=== PATIENT | male | born 1965 | race Caucasian/White ===

== ENCOUNTER 2016-03-30 16:53 | Emergency (ER) | payer SELFPAY ==
[~2016-03-30] VITALS: Ht 177.8 cm; Wt 103.0 kg
[2016-03-30 16:55] VITALS: BP 149/95; PULSE 80; RESP 16; TEMP 98.2; O2SAT 96
[2016-03-30] MEDS ORDERED: SODIUM CHLORIDE 0.9% FLUSH 5 ML FLUSH IVF PRN (17:00)
[2016-03-30 17:04] VITALS: RESP 16; O2SAT 98
[2016-03-30] MEDS ORDERED: CIPR-9 PO (17:09)
--- NOTE | 2016-03-30 17:13 | PD ---
HPI Chief Complaint: Chest Pain Time Seen by Provider: 16:58 Travel History International Travel<30 days: No Contact w/Intl Traveler<30days: No Traveled to known affect area: No History of Present Illness HPI Is a 51-year-old male presents emergency department for chief complaint of anxiety attack. Patient was just arrested for failure to comply with a law officer. Patient states he was placed in the back of a patrol car and there was no air conditioning and he has a problem with enclosed space. Patient states that police clerk was not listening to him when he began having anxiety as well as chest pain. Patient is nonsmoker no high blood pressure and no high Cholesterol and no diabetes. Patient does follow with a application specialist and apparently is going to be scheduled to have a catheterization performed. Patient states the symptoms approximately 30 minutes in duration prior to arrival to the emergency department. My initial examination patient appears quite comfortable. He complains of a minimal sharp pain in the left side of his chest without radiation or nausea no vomiting. He states it is gradually starting to resolve. PFSH Past Medical History Hx Anticoagulant Therapy: No Cardiovascular Problems: No Chemotherapy: No Cerebrovascular Accident: No Diabetes: No Gastrointestinal Disorders: Yes (hemorrhoids ) Genitourinary: Yes (pyelonephritis) Respiratory: No Past Surgical History Other Surgery: Yes (TURP, RESECTION OF BLADDER NECK) Social History Alcohol Use: No Tobacco Use: No Substance Use: No Allergies-Medications (Allergen,Severity, Reaction): Coded Allergies: Dilaudid (Verified Adverse Reaction, Severe, "out of body experience" doesn't want to be given this, 03/30/16) Reported Meds & Prescriptions Reported Meds & Active Scripts Active Reported Cipro (Ciprofloxacin HCl) 500 Mg Tab 500 Mg PO BID Review of Systems Except as stated in HPI: all other systems reviewed are Neg Physical Exam Narrative GENERAL: Well-developed well-nourished in no apparent distress SKIN: Warm and dry. HEAD: Atraumatic. Normocephalic. EYES: Pupils equal and round. No scleral icterus. No injection or drainage. ENT: No nasal bleeding or discharge. Mucous membranes pink and moist. NECK: Trachea midline. No JVD. CARDIOVASCULAR: Regular rate and rhythm. No murmur appreciated. RESPIRATORY: No accessory muscle use. Clear to auscultation. Breath sounds equal bilaterally. GASTROINTESTINAL: Abdomen soft, non-tender, nondistended. Hepatic and splenic margins not palpable. MUSCULOSKELETAL: No obvious deformities. No clubbing. No cyanosis. No edema. NEUROLOGICAL: Awake and alert. No obvious cranial nerve deficits. Motor grossly within normal limits. Normal speech. PSYCHIATRIC: Appropriate mood and affect; insight and judgment normal. Data Data Last Documented VS Vital Signs Date Time Temp Pulse Resp B/P Pulse Ox O2 Delivery O2 Flow Rate FiO2 03/30/16 17:09 95 Nasal Cannula 2 03/30/16 17:04 16 03/30/16 16:55 98.2 80 149/95 Orders Electrocardiogram (03/30/16 16:59) Ckmb (Isoenzyme) Profile (03/30/16 16:59) Complete Blood Count With Diff (03/30/16 16:59) Comprehensive Metabolic Panel (03/30/16 16:59) Magnesium (Mg) (03/30/16 16:59) Prothrombin Time / Inr (Pt) (03/30/16 16:59) Act Partial Throm Time (Ptt) (03/30/16 16:59) Troponin I (03/30/16 16:59) Lipase (03/30/16 16:59) Chest, Single Ap (03/30/16 16:59) Ecg Monitoring (03/30/16 16:59) Bilateral Bp Monitoring (03/30/16 16:59) Iv Access Insert/Monitor (03/30/16 16:59) Oximetry (03/30/16 16:59) Oxygen Administration (03/30/16 16:59) Sodium Chloride 0.9% Flush (Ns Flush) (03/30/16 17:00) Alcohol (Ethanol) (03/30/16 16:59) Drug Screen, Random Urine (03/30/16 16:59) Ondansetron Inj (Zofran Inj) (03/30/16 17:45) CKMB (03/30/16 17:00) CKMB% (03/30/16 17:00) Troponin I (03/30/16 18:55) Labs Laboratory Tests Test 03/30/16 03/30/16 03/30/16 17:00 18:10 19:15 White Blood Count 8.1 TH/MM3 Red Blood Count 4.95 MIL/MM3 Hemoglobin 15.2 GM/DL Hematocrit 44.2 % Mean Corpuscular Volume 89.3 FL Mean Corpuscular Hemoglobin 30.8 PG Mean Corpuscular Hemoglobin 34.5 % Concent Red Cell Distribution Width 14.2 % Platelet Count 203 TH/MM3 Mean Platelet Volume 7.7 FL Neutrophils (%) (Auto) 78.2 % Lymphocytes (%) (Auto) 13.7 % Monocytes (%) (Auto) 6.3 % Eosinophils (%) (Auto) 1.4 % Basophils (%) (Auto) 0.4 % Neutrophils # (Auto) 6.3 TH/MM3 Lymphocytes # (Auto) 1.1 TH/MM3 Monocytes # (Auto) 0.5 TH/MM3 Eosinophils # (Auto) 0.1 TH/MM3 Basophils # (Auto) 0.0 TH/MM3 CBC Comment DIFF FINAL Differential Comment Prothrombin Time 10.6 SEC Prothromb Time International 1.0 RATIO Ratio Activated Partial 26.5 SEC Thromboplast Time Sodium Level 143 MEQ/L Potassium Level 3.7 MEQ/L Chloride Level 109 MEQ/L Carbon Dioxide Level 28.5 MEQ/L Anion Gap 6 MEQ/L Blood Urea Nitrogen 16 MG/DL Creatinine 1.23 MG/DL Estimat Glomerular Filtration 62 ML/MIN Rate Random Glucose 100 MG/DL Calcium Level 8.9 MG/DL Magnesium Level 2.2 MG/DL Total Bilirubin 0.7 MG/DL Aspartate Amino Transf 16 U/L (AST/SGOT) Alanine Aminotransferase 26 U/L (ALT/SGPT) Alkaline Phosphatase 68 U/L Total Creatine Kinase 188 U/L Creatine Kinase MB 1.2 NG/ML Troponin I LESS THAN 0.02 LESS THAN 0.02 NG/ML NG/ML Total Protein 6.9 GM/DL Albumin 3.9 GM/DL Lipase 155 U/L Ethyl Alcohol Level LESS THAN 3 MG/DL Urine Opiates Screen NEG Urine Barbiturates Screen NEG Urine Amphetamines Screen NEG Urine Benzodiazepines Screen NEG Urine Cocaine Screen NEG Urine Cannabinoids Screen POS MDM Medical Decision Making Medical Screen Exam Complete: Yes Emergency Medical Condition: Yes Interpretation(s) EKG shows normal sinus rhythm with a normal axis and normal R-wave progression. His nonspecific RSR prime pattern in aVF. No concerning ST-T changes on his EKG. Is a borderline EKG. No previous for comparison. Differential Diagnosis Adjustment reaction. ACS seems unlikely, anxiety attack, CO seems unlikely, pneumonia, Narrative Course Patient was remembers department, EKGs were reassuring 2. Troponins negative 2. Patient's symptoms resolved without intervention. Discussed with him that he is low risk according to his risk factors. His heart score is 1. He does have follow-up with his application specialist and given his low risk nature I believe that this is reasonable this time. He is stable for discharge time. Discussed he needs to continue his follow-up with Dr. Dotson his application specialist and discuss return to ED criteria. He is stable for skilled nursing this time. Diagnosis Primary Impression: Chest pain Qualified Code: R07.9 - Chest pain, unspecified type Additional Instructions: Follow-up with her application specialist Dr. Corona as scheduled. Disposition: DISCHARGE HOME Condition: Stable Virgilio Montero MD Mar 30, 2016 17:13
[2016-03-30 17:42] LABS: AUTOMATED NEUTROPHIL # 6.3 TH/MM3 (1.8-7.7); BASOPHIL % 0.4 % (0.0-2.0); EOSINOPHIL # 0.1 TH/MM3 (0-0.4); EOSINOPHIL % 1.4 % (0.0-4.0); HEMATOCRIT 44.2 % (39.0-51.0); HEMO FLAGS DIFF FINAL; LYMPH % 13.7 % (9.0-44.0); LYMPHOCYTE # 1.1 TH/MM3 (1.0-4.8); MEAN CELL VOLUME 89.3 FL (80.0-100.0); MEAN CORPUSCULAR HEMOGLOBIN 30.8 PG (27.0-34.0); MEAN CORPUSCULAR HGB CONC 34.5 % (32.0-36.0); MONO % 6.3 % (0.0-8.0); NEUT % 78.2 % (16.0-70.0); PLATELET COUNT 203 TH/MM3 (150-450); RED BLOOD COUNT 4.95 MIL/MM3 (4.50-5.90); RED CELL DISTRIBUTION WIDTH 14.2 % (11.6-17.2); WHITE BLOOD COUNT 8.1 TH/MM3 (4.0-11.0)
[2016-03-30] MEDS ORDERED: ONDANSETRON HCL 4 MG/2 ML VIAL IV PUSH ONE (17:45)
--- NOTE | 2016-03-30 17:51 | RADRPT ---
EXAM DATE/TIME: 03/30/2016 17:10 [facility] COMPARISON: No previous studies available for comparison. INDICATIONS : Chest pain for 12 hours. MEDICAL HISTORY : None. SURGICAL HISTORY : None. ENCOUNTER: Initial ACUITY: 1 day PAIN SCORE: 4/10 LOCATION: Center of chest FINDINGS: A single view of the chest demonstrates the lungs to be symmetrically aerated without evidence of mas s, infiltrate or effusion. The cardiomediastinal contours are unremarkable. Osseous structures are intact. CONCLUSION: No acute disease. Surya France MD on March 30, 2016 at 17:50 Board Certified Radiologist. This report was verified electronically.
[2016-03-30 18:01] LABS: APTT (PATIENT) 26.5 SEC (24.3-30.1); PROTHROMBIN TIME - PATIENT 10.6 SEC (9.8-11.6)
[2016-03-30 18:08] LABS: ANION GAP 6 MEQ/L (5-15); AST (GOT) 16 U/L (15-37); BICARBONATE 28.5 MEQ/L (21.0-32.0); BLOOD UREA NITROGEN 16 MG/DL (7-18); CHLORIDE 109 MEQ/L (98-107); GLOMERULAR FILTRATION RATE 62 ML/MIN (>89); MAGNESIUM 2.2 MG/DL (1.5-2.5); POTASSIUM 3.7 MEQ/L (3.5-5.1); SODIUM (NA) 143 MEQ/L (136-145)
[2016-03-30 18:16] LABS: ALKALINE PHOSPHATASE 68 U/L (45-117); ALT (GPT) 26 U/L (12-78); CREATINE KINASE 188 U/L (39-308); TOTAL BILIRUBIN ADULT 0.7 MG/DL (0.2-1.0)
[2016-03-30 18:32] LABS: CKMB 1.2 NG/ML (0.5-3.6)
[2016-03-30 18:36] LABS: AMPHETAMINE, URINE NEG (NEG); BARBITURATES, URINE NEG (NEG); COCAINE, URINE NEG (NEG)
--- NOTE | 2016-04-01 21:08 | EKG ---
Date Performed: 03/30/2016 Time Performed: 17:00:53 PTAGE: 51 years EKG: Sinus rhythm BORDERLINE LEFT AXIS DEVIATION BORDERLINE ECG NO PREVIOUS TRACING DOCTOR: Angel Arias Interpretating Date/Time 04/01/2016 21:07:59
== END 2016-03-30 20:39 | disposition home or self-care (01) ==
LOC: NEPC 16:53
DX: R07.9 Chest pain, unspecified (principal)
CPT/HCPCS: 71010; 80053; 80307; 80320; 82550; 82552; 83690; 83735; 84484; 85025; 85610; 85730; 93005; 96374; 99285; J2405